=== PATIENT | female | born 1995 | race Caucasian/White ===

== ENCOUNTER 2018-08-25 15:13 | Emergency (ER) | payer BC ==
--- NOTE | 2018-08-25 17:24 | EDM.PDOC ---
ED HPI GENERAL MEDICAL PROBLEM - General Chief Complaint: Upper Extremity Injury/Pain Stated Complaint: ELBOW INJURY Time Seen by Provider: 08/25/18 15:30 Source of Information: Reports: Patient History Limitations: Reports: No Limitations - History of Present Illness INITIAL COMMENTS - FREE TEXT/NARRATIVE: 23-year-old female presents for evaluation and treatment of injury to the right elbow. Patient reports injury occurred prior to arrival in the ER. She states that she was on her cousin's hover board. Reports that she fell. Reports that she stretch her arm out. She does not have any pain to the right wrist or shoulder. She states she did not hit her head or have any other injuries. Pain is localized to the right elbow. No numbness or tingling to the hand. Reports decreased range of motion due to the pain. She states that she cannot completely extend the arm and is keeping a flexed position approximately 90. No previous history of any elbow problems. Patient is right-handed. Onset: Today Location: Reports: Upper Extremity, Right Right Elbow Pain Score (Numeric/FACES): 6 - Related Data Allergies Allergy/AdvReac Type Severity Reaction Status Date / Time Penicillins Allergy Rash Verified 08/25/18 15:23 Home Meds: Home Meds Albuterol Inhaler. 1 dose INH ASDIRECTED 08/25/18 [History] Depo Vera. 1 dose INJECT ASDIRECTED 08/25/18 [History] Past Medical History Respiratory History: Reports: Asthma Social & Family History - Tobacco Use Smoking Status *Q: Never Smoker - Recreational Drug Use Recreational Drug Use: No Review of Systems - Review of Systems Review Of Systems: See Below Musculoskeletal: Reports: Joint Pain (right elbow) Skin: Denies: Bruising, Erythema, Wound Neurological: Denies: Numbness, Tingling ED EXAM, GENERAL - Physical Exam Exam: See Below Exam Limited By: No Limitations General Appearance: Alert, WD/WN, No Apparent Distress Respiratory/Chest: No Respiratory Distress Cardiovascular: Normal Peripheral Pulses, Regular Rate, Rhythm Peripheral Pulses: 2+: Radial (R) Extremities: Normal Inspection (no obvious deformity), Normal Capillary Refill, Limited Range of Motion (ROM testing to the right elbow deferred due to pain; elbow kept flexed around 90 degrees, full ROM to the right wrist, hand and shoulder), Other (tenderness to palpation to the right radial head) Neurological: Alert, Oriented, Normal Cognition Psychiatric: Normal Affect, Normal Mood Skin Exam: Warm, Dry, Normal Color. No: Ecchymosis, Erythema, Increased Warmth ED TRAUMA EXTREMITY PROCEDURES - Splinting Right Upper Extremity Pre-Procedure NV Status: Normal Post-Procedure NV Status: Normal Splint Material: Sling Applied & Form Fitted By: Nurse Complications: No Course - Vital Signs Last Recorded V/S: Last Vital Signs Temp 97.8 F 08/25/18 15:24 Pulse 104 H 08/25/18 15:24 Resp 15 08/25/18 15:24 BP 113/75 08/25/18 15:24 Pulse Ox 100 08/25/18 15:24 - Radiology Interpretation Free Text/Narrative:: xray of the right elbow shows a fracture to the right radial head, + fat pad sign, anterior and posterior - Re-Assessments/Exams Free Text/Narrative Re-Assessment/Exam: 08/25/18 17:11 xray results reviewed the patient. Will place in an WALTER bandage and sling. Patient is from [place] and plans to return home tomorrow. Recommend close follow-up with orthopedics. Discharge instructions as documented. Departure - Departure Time of Disposition: 17:18 Disposition: Home, Self-Care 01 Condition: Fair Clinical Impression: Fracture of radius - Discharge Information *PRESCRIPTION DRUG MONITORING PROGRAM REVIEWED*: No *COPY OF PRESCRIPTION DRUG MONITORING REPORT IN PATIENT DAR: No Instructions: Radial Fracture Referrals: PCP,Not In Area [Primary Care Provider] - Forms: ED Department Discharge, ED Return to Work/School Form Additional Instructions: Rx for norco 5-325 tabs 1-2 tabs PO every 4-6 hours prn pain #20 given through instymeds Ice and elevate the elbow as much as you are able to. WALTER wrap to help with the swelling. Arm sling at all times for immobilization, may remove for showering, sleeping but keep immobile. Follow-up with orthopedics when you return home. May take OTC ibuprofen as needed for pain. Do not take more than 3200mg of ibuprofen from all sources in one day. For pain not relieved by ibuprofen may take norco 1-2 tabs PO every 4-6 hours. [place] is habit forming, take as few of these as needed to control you pain. Do not drive or operate machinery within 10 hours of taking norco. May work as long as you are not requiring pain medication and no use of right arm until cleared by ortho. Please return to the ER should your symptoms change or worsen.
--- NOTE | 2018-08-26 08:30 | CR ---
Right elbow: Four views of the right elbow were obtained. Comparison: No previous study. Radial neck fracture is identified. Joint effusion is seen. No additional fracture or other abnormality is appreciated. Impression: 1. Nondisplaced radial neck fracture. 2. Joint effusion. Diagnostic code #3
== END 2018-08-25 17:43 | disposition home or self-care (01) ==
LOC: JD.ED 15:13
DX: S52.134A Nondisplaced fracture of neck of right radius, initial encounter for closed fracture (principal); J45.909 Unspecified asthma, uncomplicated; W17.89XA Other fall from one level to another, initial encounter; Y93.89 Activity, other specified; Z88.0 Allergy status to penicillin; Z79.899 Other long term (current) drug therapy; Z79.3 Long term (current) use of hormonal contraceptives
CPT/HCPCS: 73080-26-RT; 73080-RT; 99283